=== PATIENT | female | born 1965 | race American Indian/Alaskan Native ===

== ENCOUNTER 2016-07-28 09:37 | Outpatient (CLI) | payer MEDICARE ==
[2016-07-28 10:23] LABS: Anion Gap 18 mmol/L; BUN/Creatinine Ratio 17.14; Blood Urea Nitrogen 12 mg/dL (7-17); Calcium 9.8 mg/dL (8.4-10.2); Carbon Dioxide 26 mmol/L (22-30); Glucose 125 mg/dL (65-100); Potassium 3.7 mmol/L (3.6-5.0); Sodium 140 mmol/L (137-145)
[2016-07-28] MEDS ORDERED: NACL ONE (10:48)
--- NOTE | 2016-07-28 11:55 | Cat Scan Report ---
CT CHEST WITH CONTRAST: 07/28/16 09:37:00 CLINICAL: Sarcoidosis. Comparison: None. TECHNIQUE: Volumetric acquisition and 1.25 mm scan reconstructions after the uneventful intravenous injection of 100cc Omnipaque 300. Consent was obtained prior to the administration of contrast. FINDINGS: Bilateral upper lobe reticular interstitial opacities with linear opacities extending from the barry to the pleura. This is associated with bilateral upper lobe traction bronchiectasis with greater dilatation on the left. No airspace disease or pleural effusion. No pulmonary nodule or mass. No hilar or mediastinal lymphadenopathy. Normal heart, pulmonary arteries and aorta. Normal thyroid, trachea and esophagus. No axillary or supraclavicular lymphadenopathy. An oval circumscribed low-density cyst or mass of the central left breast measures 2.6 x 1.4 cm. The upper abdomen is unremarkable. The bones are normal. IMPRESSION: 1. Bilateral upper lobe interstitial disease and bronchiectasis which is compatible with but not specific for a diagnosis of sarcoidosis. 2. No lymphadenopathy and no alveolar disease. 3. A 2.6 cm left breast mass or cyst. Recommend correlation with past mammograms if they are available. Recommend further evaluation with mammography and ultrasound if no previous breast images are available.
== END 2016-07-28 09:38 | disposition home or self-care (01) ==
LOC: CT 09:37 → EDBD 10:30
PROVIDERS: ATTEND Internal Medicine
DX: J84.9 Interstitial pulmonary disease, unspecified (principal); J47.9 Bronchiectasis, uncomplicated
CPT/HCPCS: 36415; 71260; 80048; 82164; Q9967

== ENCOUNTER 2016-08-08 00:26 | Emergency (ER) | payer MEDICARE ==
[2016-08-08] MEDS ORDERED: NORCO 5/325 ONE (00:36)
[2016-08-08] MEDS ORDERED: NORCO 5/325 PO ONE (00:51)
[2016-08-08] MEDS ORDERED: THERMAZENE 50 GRAM TP ONE ×2 (03:21→03:31)
[2016-08-08] MEDS ORDERED: ZOFRAN ODT PO ONE (03:22)
[2016-08-08] MEDS ORDERED: DILAUDID IM ONE ×2 (03:22→04:36)
--- NOTE | 2016-08-08 03:22 | Emergency Department Report ---
ED Burn/Smoke HPI - General Chief complaint: Burn/Smoke Inhalation Stated complaint: BURN TO LT HAND Time Seen by Provider: 08/08/16 02:40 Source: patient, family Mode of arrival: Ambulatory Limitations: No Limitations - History of Present Illness Initial comments: Patient here reports that she burned her left hand after grease splashed on it while she was cooking. She says she is having pain 10 out of 10 this throbbing and burning. No [id number] medication taken. Patient received [place] 5/ 325 2 tablets in triage and her pain went down to 6 out of 10 but immediately went back up to 10 out of 10. She said her tetanus shot is less than 6 years. Denies any numbness or tingling to left hand. Denies any sanchez inside anywhere else on her body. MD Complaint: burn, other (grease burn) -: During the night Type of Exposure: hot liquid Smoke Inhalation: none Place: home Location - Extremities: Left: Hand (pain and burning in) Severity: severe Severity scale (0 -10): 10 Associated Symptoms: denies: headache, vision changes, cough, diaphoresis, fever /chills, chest pain, flushing, neck pain, nausea/vomiting Treatment Prior to Arrival: other (none) - Related Data Home Medications Medication Instructions Recorded Confirmed Last Taken amLODIPine 10 mg PO DAILY 08/08/16 08/08/16 Unknown predniSONE 10 mg PO DAILY 08/08/16 08/08/16 Unknown Previous Rx's Medication Instructions Recorded Last Taken Type Ibuprofen [Motrin] 600 mg PO Q8H PRN #21 tablet 08/08/16 Unknown Rx SILVER sulfADIAZINE 50 GRAM 1 applicatio TP BID #1 tube 08/08/16 Unknown Rx [Thermazene 50 Gram] Sulfamethoxazole/Trimethoprim 1 each PO BID #20 tablet 08/08/16 Unknown Rx [Bactrim DS TAB] oxyCODONE /ACETAMINOPHEN [Percocet 1 tab PO Q6HR PRN #16 tablet 08/08/16 Unknown Rx 5/325] Allergies Allergy/AdvReac Type Severity Reaction Status Date / Time No Known Allergies Allergy Unverified 08/08/16 00:48 Burn HPI - History Stated Complaint: BURN TO LT HAND Chief Complaint: Burn/Smoke Inhalation Time Seen by Provider: 08/08/16 02:40 - Home Meds and Allergies Home Medications: Home Medications Medication Instructions Recorded Confirmed Last Taken amLODIPine 10 mg PO DAILY 08/08/16 08/08/16 Unknown predniSONE 10 mg PO DAILY 08/08/16 08/08/16 Unknown Previous Rx's Medication Instructions Recorded Last Taken Type Ibuprofen [Motrin] 600 mg PO Q8H PRN #21 tablet 08/08/16 Unknown Rx SILVER sulfADIAZINE 50 GRAM 1 applicatio TP BID #1 tube 08/08/16 Unknown Rx [Thermazene 50 Gram] Sulfamethoxazole/Trimethoprim 1 each PO BID #20 tablet 08/08/16 Unknown Rx [Bactrim DS TAB] oxyCODONE /ACETAMINOPHEN [Percocet 1 tab PO Q6HR PRN #16 tablet 08/08/16 Unknown Rx 5/325] Allergies/Adverse Reactions: Allergies Allergy/AdvReac Type Severity Reaction Status Date / Time No Known Allergies Allergy Unverified 08/08/16 00:48 ED Review of Systems ROS: Stated complaint: BURN TO LT HAND Other details as noted in HPI Comment: All other systems reviewed and negative Constitutional: denies: chills, fever Respiratory: no symptoms reported Cardiovascular: denies: chest pain, palpitations, edema, syncope Gastrointestinal: denies: abdominal pain, nausea, vomiting Musculoskeletal: arthralgia. denies: back pain, myalgia Skin: denies: rash Neurological: denies: headache, weakness, numbness, paresthesias, abnormal gait , vertigo ED Past Medical Hx - Past Medical History Previous Medical History?: Yes Hx Hypertension: Yes Additional medical history: SARCOIDOSIS, SICKLE TRAIT TRAIT, ANEMIA - Surgical History Past Surgical History?: Yes Additional Surgical History: FEET SURGERY - Family History Family history: hypertension - Social History Smoking Status: Never Smoker Substance Use Type: None - Medications Home Medications: Home Medications Medication Instructions Recorded Confirmed Last Taken Type Ibuprofen [Motrin] 600 mg PO Q8H PRN #21 tablet 08/08/16 Unknown Rx SILVER sulfADIAZINE 50 GRAM 1 applicatio TP BID #1 tube 08/08/16 Unknown Rx [Thermazene 50 Gram] Sulfamethoxazole/Trimethoprim 1 each PO BID #20 tablet 08/08/16 Unknown Rx [Bactrim DS TAB] amLODIPine 10 mg PO DAILY 08/08/16 08/08/16 Unknown History oxyCODONE /ACETAMINOPHEN [Percocet 1 tab PO Q6HR PRN #16 tablet 08/08/16 Unknown Rx 5/325] predniSONE 10 mg PO DAILY 08/08/16 08/08/16 Unknown History ED Physical Exam - General Limitations: No Limitations General appearance: alert, in no apparent distress - Head Head exam: Present: atraumatic, normocephalic, normal inspection - Eye Eye exam: Present: normal appearance, PERRL, EOMI Pupils: Present: normal accommodation - ENT ENT exam: Present: normal exam, normal orophraynx, mucous membranes moist, TM's normal bilaterally, normal external ear exam - Neck Neck exam: Present: normal inspection, full ROM. Absent: tenderness, meningismus, lymphadenopathy - Respiratory Respiratory exam: Present: normal lung sounds bilaterally. Absent: respiratory distress, chest wall tenderness - Cardiovascular Cardiovascular Exam: Present: regular rate, normal rhythm, normal heart sounds - GI/Abdominal GI/Abdominal exam: Present: soft, normal bowel sounds. Absent: distended, tenderness, guarding, rebound, rigid - Extremities Exam Extremities exam: Present: tenderness (left hand tender to palpate), normal capillary refill. Absent: normal inspection, full ROM (limited range of motion to left hand due to pain from grease burn), pedal edema, calf tenderness - Expanded Upper Extremity Exam Left General: Absent: normal inspection Shoulder Exam: Present: normal inspection, full ROM. Absent: tenderness, swelling, abrasion, laceration, ecchymosis, deformity, crepidus, dislocation, erythema, tenderness over AC joint Upper Arm exam: Present: normal inspection, full ROM. Absent: tenderness, swelling, abrasion, laceration, ecchymosis, deformity, crepidus, dislocation, erythema Elbow exam: Present: normal inspection, full ROM. Absent: tenderness, swelling , abrasion, laceration, ecchymosis, deformity, crepidus, dislocation, erythema, effusion, pain w/ pronation/supination, tenderness over radial head Forearm Wrist exam: Present: normal inspection, full ROM. Absent: swelling, abrasion, laceration, ecchymosis, deformity, crepidus, dislocation, erythema, tenderness over anatomical snuff box, pain with axial thumb loading Hand Wrist exam: Present: tenderness (left dorsal aspect of hand), swelling ( dorsal aspect of hand), other (blister and burn). Absent: normal inspection, full ROM (Limited range of motion due to pain from burn), abrasion, laceration, ecchymosis, deformity, crepidus, dislocation, erythema, amputation, nail avulsion, subungual hematoma Neuro motor exam: Present: wrist extension intact, thumb opposition intact, thumb IP flexion intact, thumb adduction intact, fingers 2-5 abduction intact Neurosensory exam: Present: 2-point discrimination, radial nerve intact, ulnar nerve intact, median nerve intact Vascular: Present: normal capillary refill, radial pulse, brachial pulse, ulnar pulse. Absent: vascular compromise, Pallo, pulse deficit radial art, pulse deficit ulnar art, pulse deficit brachial art - Back Exam Back exam: Present: normal inspection, full ROM. Absent: tenderness - Neurological Exam Neurological exam: Present: alert, oriented X3, normal gait, reflexes normal. Absent: motor sensory deficit - Psychiatric Psychiatric exam: Present: normal affect, normal mood - Skin Skin exam: Present: warm, dry - Expanded Skin Exam Expanded Type of lesion: Present: other (second degree burn to dorsal aspect of left hand ) Distribution of rash: LUE (dorsal aspect of left hand) Description of rash: Present: size (4.5% based on the role of 9), tenderness, swelling, blisters. Absent: crusting ED Course Vital Signs 08/08/16 08/08/16 08/08/16 00:30 03:57 04:38 Temperature 97.8 F 97.5 F L Pulse Rate 94 H 66 Respiratory 16 16 Rate Blood Pressure 167/97 185/101 Blood Pressure 167/97 [Left] Blood Pressure 180/100 [Right] O2 Sat by Pulse 100 97 Oximetry 08/08/16 05:07 Temperature Pulse Rate Respiratory 18 Rate Blood Pressure Blood Pressure [Left] Blood Pressure 173/98 [Right] O2 Sat by Pulse Oximetry - Reevaluation(s) Reevaluation #1: 08/08/16 05:28 Patient given [place] 5/325 2 tablets in emergency room triage area for left hand pain secondary to burn. This did not relieve her pain and she was given Dilaudid 1 mg IM along with Zofran 4 mg ODT. She still remains in pain and was given additional Dilaudid 1 mg IM with relief of pain down to 3 out of 10. Her blood pressure was elevated with history of high blood pressure and she had not taken her medication today. Clonidine 0.1 mg which brought her blood pressure down. Left hand included finger is cleansed with normal saline and Silvadene ointment placed followed by sterile gauze dressing. Tetanus vaccine is up-to- date per patient ED Medical Decision Making - Medical Decision Making ED course: Patient status post burn with hot grease to left hand. She said this was accidental and happened while she was cooking. She said her tetanus vaccine is up-to-date and less than 5 years .she was given an [place] 5/325 2 tablets in triage area, Dilaudid 1 mg IM along with Zofran 4 mg ODT and emergency room area which did not relieve her pain. She was given an additional 1 mg of Dilaudid IM which brought her pain down to 3 out of 10. Blood pressure elevated and emergency room and was given clonidine 0.1 mg which brought her blood pressure down. Blood pressure remained elevated but not at a critical level. She is on blood pressure medication and was advised to take her medication when she gets home. Patient with 4.5% burn to body surface second degree. Left hand has a normal saline and Silvadene cream placed to side followed by sterile gauze dressing. Patient instructed that she needs to follow-up at [facility] for management of burn and I'll also give her [facility] wound care center. Patient was understanding of discharge instruction and treatment plan and discharged home with prescription for Percocet, Motrin, Bactrim and Silvadene. Critical care attestation.: If time is entered above; I have spent that time in minutes in the direct care of this critically ill patient, excluding procedure time. ED Disposition Clinical Impression: Arthralgia of left hand, Elevated blood pressure reading in office with diagnosis of hypertension Second degree burn of left hand and fingers Qualifiers: Encounter type: initial encounter Qualified Code(s): T23.202A - Burn of second degree of left hand, unspecified site, initial encounter; T23.232A - Burn of second degree of multiple left fingers (nail), not including thumb, initial encounter Disposition: DC-01 TO HOME OR SELFCARE Is pt being admited?: No Does the pt Need Aspirin: No Condition: Stable Instructions: Acute Wound Care (ED), Partial Thickness Burn (ED), Arthralgia ( ED), Hypertension (ED), Chronic Hypertension (ED) Additional Instructions: Please apply Silvadene cream to left hand and finger twice daily followed by non -adhesive gauze dressing and Federico wrap. followed instruction to follow up with [facility] and or [facility] wound care center. Do not take while operating heavy machinery or driving as this medication cause drowsines Take bactrim DS as prescribed Please keep a log of your blood pressure. Take blood pressure daily and schedule appointment for follow-up visit at primary care doctor's office Prescriptions: Ibuprofen [Motrin] 600 mg PO Q8H PRN #21 tablet PRN Reason: Pain oxyCODONE /ACETAMINOPHEN [Percocet 5/325] 1 tab PO Q6HR PRN #16 tablet PRN Reason: Pain SILVER sulfADIAZINE 50 GRAM [Thermazene 50 Gram] 1 applicatio TP BID #1 tube Sulfamethoxazole/Trimethoprim [Bactrim DS TAB] 1 each PO BID #20 tablet Referrals: PRIMARY CARE, [Primary Care Provider] - 08/12/16 [facility] [Outside] - 08/12/16 [facility] [Outside] - 08/10/16 Forms: Accompanied Note, Work/School Release Form(ED)
[2016-08-08] MEDS ORDERED: CATAPRES ONE ×2 (04:33→04:35)
[2016-08-08] MEDS ORDERED: CATAPRES PO ONE (04:36)
[2016-08-08 05:08] VITALS: BP 173/98
== END 2016-08-08 05:50 | disposition home or self-care (01) ==
LOC: ED 00:26
DX: T23.202A Burn of second degree of left hand, unspecified site, initial encounter (principal); T23.232A Burn of second degree of multiple left fingers (nail), not including thumb, initial encounter; M79.642 Pain in left hand; I10 Essential (primary) hypertension; D86.9 Sarcoidosis, unspecified; D64.9 Anemia, unspecified; X08.8XXA Exposure to other specified smoke, fire and flames, initial encounter; Y93.89 Activity, other specified; Y99.9 Unspecified external cause status; Y92.89 Other specified places as the place of occurrence of the external cause
CPT/HCPCS: 16020; 96372; 99283; J1170; Q0162

== ENCOUNTER 2017-09-15 09:08 | Outpatient (CLI) | payer MEDICARE ==
[2017-09-15 10:02] LABS: Alanine Aminotransferase 9 units/L (7-56); Albumin 4.1 g/dL (3.9-5); BUN/Creatinine Ratio 13; Blood Urea Nitrogen 9 mg/dL (7-17); Calcium 9.8 mg/dL (8.4-10.2); Hemolysis Index 0
[2017-09-15 10:04] LABS: Hematocrit 35.3 % (30.3-42.9); Hemoglobin 11.5 gm/dl (10.1-14.3); Mean Corpuscular HGB Conc 33 % (30-34); Mean Corpuscular Hemoglobin 26 pg (28-32); Mean Corpuscular Volume 80 fl (79-97); Platelet Count 267 K/mm3 (140-440); Red Blood Count 4.43 M/mm3 (3.65-5.03)
--- NOTE | 2017-09-15 11:05 | XRay Report ---
ROUTINE CHEST, TWO VIEWS: HISTORY: Shortness of breath. Prominent interstitial markings in the upper lobes and cylindrical bronchiectasis in the left upper lobe appear stable since the CT chest dated 07/28/16. No evidence for pulmonary infiltrate, mass, pleural effusion or pneumothorax. Heart and mediastinal structures are within normal limits. Normal bony thorax. IMPRESSION: No change in the upper lobe lung disease since 07/28/16.
--- NOTE | 2017-09-15 11:48 | Cat Scan Report ---
CTA CHEST: HISTORY: Shortness of breath. COMPARISON: 07/28/16. TECHNIQUE: Helical CT in 1.25mm intervals following IV contrast. Pulmonary embolus protocol. Sagittal and coronal reformatted images. Rotational MIP images. FINDINGS: Contrast bolus is satisfactory. No pulmonary embolus is identified. Thyroid gland: Normal. Tracheobronchial tree: The tracheobronchial tree is patent. Mild cylindrical bronchiectasis in the left upper lobe is unchanged. No additional areas of bronchiectasis are identified. Esophagus: Normal. Heart: Normal. Pericardium: Normal. Mediastinum: Normal. Lung Sousa: Mild chronic scarring in the upper lobes, left greater than right is unchanged. Subtle, ill-defined groundglass densities have developed throughout both lungs since the previous exam. The significance of this is unclear. There is no evidence for consolidation, fibrosis or mass. Pleural Spaces: Normal. Musculoskeletal: Mild thoracic spondylosis is stable. No suspicious bony lesion or fracture. IMPRESSION: No evidence for pulmonary embolus. Mild bilateral upper lobe interstitial disease and bronchiectasis in the left upper lobe as described, unchanged. Patchy groundglass densities have developed throughout both lungs since 07/28/16 which are of uncertain significance. I suppose this could be related to progression of interstitial lung disease. Interstitial infiltrates or interstitial edema could be considered.
== END 2017-09-15 09:09 | disposition home or self-care (01) ==
LOC: CT 09:08
PROVIDERS: ATTEND Internal Medicine
DX: J47.9 Bronchiectasis, uncomplicated (principal); J84.9 Interstitial pulmonary disease, unspecified; J98.4 Other disorders of lung; M47.894 Other spondylosis, thoracic region; I10 Essential (primary) hypertension
CPT/HCPCS: 36415; 71046; 71275; 80053; 82164; 85027; Q9967